=== PATIENT | female | born 1960 | race Two or more races ===

== ENCOUNTER 2019-03-03 16:11 | Emergency (ER) | payer SELFPAY ==
[~2019-03-03] VITALS: Ht 162.6 cm; Wt 97.5 kg
[2019-03-03] MEDS ORDERED: IPRATRPIUM/ALBUTEROL 0.5/2.5MG 3 ML NEBU. ONE (16:50)
--- NOTE | 2019-03-03 16:51 | PHYS DOC ---
Past History Past Medical History: COPD (HERBERTH OROZCO DO) Smoking: Cigarettes Alcohol Use: Occasionally Drug Use: Marijuana, Methamphetamine (HERBERTH OROZCO DO) Adult General HPI HPI Patient is a 59-year-old female presents complaining of chest pain for the past week. Also shortness of breath. She reports being held of her rescue inhaler. She does have home nebulizer treatments. Nothing seems to make the discomfort better or worse. Patient feels like "my A. fib is acting up." Patient denies any respirophasic component to the chest pain. She admits to using methamphetamine yesterday as well as marijuana. There is no radiation of the discomfort. She was seen at [facility] several days ago for similar symptoms and sent home on antibiotics. She is also seeking help with rehabilitation for her methamphetamine abuse.[] (HERBERTH OROZCO DO) Review of Systems Review of Systems Constitutional: Denies fever or chills [] Eyes: Denies change in visual acuity, redness, or eye pain [] HENT: Denies nasal congestion or sore throat [] Respiratory: Denies cough or shortness of breath [] Cardiovascular: No additional information not addressed in HPI [] GI: Denies abdominal pain, nausea, vomiting, bloody stools or diarrhea [] : Denies dysuria or hematuria [] Musculoskeletal: Denies back pain or joint pain [] Integument: Denies rash or skin lesions [] Neurologic: Denies headache, focal weakness or sensory changes [] Endocrine: Denies polyuria or polydipsia [] All other systems were reviewed and found to be within normal limits, except as documented in this note. (HERBERTH OROZCO DO) Current Medications Current Medications Current Medications Medications (Trade) Dose Ordered Sig/Sweta Start Time Stop Time Status Last Admin Dose Admin Albuterol/ Ipratropium (Duoneb) 3 ml 1X ONCE 03/03/19 16:45 03/03/19 16:46 UNV Aspirin (Children'S Aspirin) 324 mg 1X ONCE 03/03/19 16:45 03/03/19 16:46 UNV (HERBERTH OROZCO DO) Physical Exam Physical Exam Constitutional: Well developed, well nourished, no acute distress, non-toxic appearance. [] HENT: Normocephalic, atraumatic, bilateral external ears normal, oropharynx moist, no oral exudates, nose normal. [] Eyes: PERRLA, EOMI, conjunctiva normal, no discharge. [] Neck: Normal range of motion, no tenderness, supple, no stridor. [] Cardiovascular:Heart rate regular rhythm, no murmur [] Lungs & Thorax: Bilateral breath sounds clear to auscultation [] Abdomen: Bowel sounds normal, soft, no tenderness, no masses, no pulsatile masses. [] Skin: Warm, dry, no erythema, no rash. [] Back: No tenderness, no CVA tenderness. [] Extremities: No tenderness, no cyanosis, no clubbing, ROM intact, no edema. [] Neurologic: Alert and oriented X 3, normal motor function, normal sensory function, no focal deficits noted. [] Psychologic: Affect anxious, judgement normal, mood normal. [] (HERBERTH OROZCO DO) EKG EKG EKG shows an irregular rhythm, normal axis, rate of 86 bpm, QTC of 441 ms, no ST elevations. Interpreted by me at 1628.[] (HERBERTH OROZCO DO) Radiology/Procedures Radiology/Procedures PROCEDURE: PORTABLE CHEST 1V PORTABLE CHEST 1V Clinical indications: Shortness of breath. Chest pain. COMPARISON: None available. Findings: Mild bilateral interstitial thickening is seen bilaterally. No lung consolidation or pleural effusion or lung mass or pneumothorax is seen. The heart size, pulmonary vasculature, mediastinum and both sandro are unremarkable. 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 Impression: Bilateral interstitial lung infiltrates versus bronchitis. No consolidative pneumonia.[] (HERBERTH OROZCO DO) Course & Med Decision Making Course & Med Decision Making Pertinent Labs and Imaging studies reviewed. (See chart for details) ED course: Patient arrived, was placed in bed, and tolerated exam well. Patient care endorsed to the nighttime physician at 1800 with laboratory testing in progress.[] (HERBERTH OROZCO DO) Course & Med Decision Making Arrangement with [facility] for an in pt. Treatment facility- however refused inpatient program. Impression: 1. History of polysubstance use 2. Possible polysubstance use withdrawal 3. Anxiety disorder 4. Bipolar disorder 5. Elevated glucose-249= resolved with hydration 6. Marijuana and Tobacco use Pt. ecourage to follow up with Counseling center and primary care. Pt. to see primary or counseling center for renewal of narcotic and anxiety meds. (KEREN KOVACS MD) Dragon Disclaimer Dragon Disclaimer This electronic medical record was generated, in whole or in part, using a voice recognition dictation system. (HERBERTH OROZCO DO) Departure Departure: Disposition: 01 HOME/RESIDENCE PRIOR TO ADM Condition: STABLE Dragon Disclaimer This chart was dictated in whole or in part using Voice Recognition software in a busy, high-work load, and often noisy Emergency Department environment. It may contain unintended and wholly unrecognized errors or omissions. (KEREN KOVACS MD) HERBERTH OROZCO DO Mar 03, 2019 16:51 KEREN KOVACS MD Mar 04, 2019 03:46
[2019-03-03 17:01] LABS: BASO # 0.1 x10^3/uL (0.0-0.2); BASO % 1 % (0-3); EOS % 0 % (0-3); HEMATOCRIT 42.9 % (36.0-47.0); HEMOGLOBIN 14.2 g/dL (12.0-15.5); LYMPH # 2.5 x10^3/uL (1.0-4.8); LYMPH % 24 % (24-48); MEAN CORPUSCULAR HEMOGLOBIN 30 pg (25-35); MEAN CORPUSCULAR HGB CONC 33 g/dL (31-37); MEAN CORPUSCULAR VOLUME 90 fL (79-100); MONO # 0.7 x10^3/uL (0.0-1.1); MONO % 6 % (0-9); NEUT # 7.2 x10^3uL (1.8-7.7); NEUT % 69 % (31-73); PLATELET COUNT 242 x10^3/uL (140-400); RED BLOOD COUNT 4.79 x10^6/uL (3.50-5.40); WHITE BLOOD COUNT 10.5 x10^3/uL (4.0-11.0)
--- NOTE | 2019-03-03 17:06 | RAD ---
PORTABLE CHEST 1V Clinical indications: Shortness of breath. Chest pain. COMPARISON: None available. Findings: Mild bilateral interstitial thickening is seen bilaterally. No lung consolidation or pleural effusion or lung mass or pneumothorax is seen. The heart size, pulmonary vasculature, mediastinum and both sandro are unremarkable. 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 Impression: Bilateral interstitial lung infiltrates versus bronchitis. No consolidative pneumonia. Electronically signed by: Carlos Jung MD (03/03/2019 5:03 PM) [place] [id number]
[2019-03-03 17:09] LABS: PREG TEST PT QUAL NEGATIVE (NEG)
[2019-03-03] MEDS ORDERED: ASPIRIN 81 MG TAB.CHEW PO ONE (17:10)
[2019-03-03] MEDS ORDERED: IPRATRPIUM/ALBUTEROL 0.5/2.5MG 3 ML NEBU. NEB ONE (17:10)
[2019-03-03 17:19] LABS: ALBUMIN 3.7 g/dL (3.4-5.0); CALCIUM 8.9 mg/dL (8.5-10.1); GFR 56.9; MAGNESIUM 1.8 mg/dL (1.8-2.4); POTASSIUM 4.2 mmol/L (3.5-5.1); TOTAL BILIRUBIN 0.3 mg/dL (0.2-1.0); TOTAL PROTEIN 7.4 g/dL (6.4-8.2)
--- NOTE | 2019-03-03 18:03 | EKG ---
[address] [address] Test Date: 2019-03-03 Test Time: 16:25:55 Pat Name: CRISTA SEXTON Department: Room: Gender: F Want Ad Clerk: : 1960 Requested By: HERBERTH OROZCO Order Number: [id number] Reading MD: Measurements Intervals [place] Rate: 86 P: [place]: QRS: 53 QRSD: 74 T: 48 QT: 366 QTc: 441 Interpretive Statements IRREGULAR RHYTHM, NO P-WAVE FOUND LOW LIMB LEAD VOLTAGE NO SPECIFIC ECG ABNORMALITIES RI6.01 No previous ECG available for comparison
[2019-03-03] MEDS ORDERED: IV RINGERS SOLUTION,LACTATED 1,000 ML IV ONE ×2 (19:15→21:30)
[2019-03-03 19:56] LABS: BARBITURATES NEG (NEG); BENZODIAZEPINES NEG (NEG); CANNABINOIDS POS (NEG); COCAINE NEG (NEG); METHADONE NEG (NEG); OPIATES NEG (NEG); PHENCYCLIDINE NEG (NEG)
[2019-03-03] MEDS ORDERED: ALBUTEROL SULFATE 8GM INHALER. INH ONE (20:00)
[2019-03-03 20:03] LABS: AMPHETAMINE/METHAMPHETAMINE NEG (NEG)
[2019-03-03 22:15] LABS: BACTERIA,URINE FEW /HPF (0-FEW); BILIRUBIN,URINE NEG (NEG); CLARITY,URINE CLEAR; COLOR,URINE YELLOW; GLUCOSE,URINE >=1000 mg/dL (NEG); HYALINE CASTS, URINE OCC /HPF; NITRITE,URINE NEG (NEG); SQUAMOUS EPITHELIAL CELL,UR OCC /LPF; UROBILINOGEN,URINE 0.2 mg/dL (0.2 mg/dL)
[2019-03-03 22:21] VITALS: BP 120/81
== END 2019-03-03 22:45 | disposition home or self-care (01) ==
LOC: ER 18:13
DX: F41.9 Anxiety disorder, unspecified (principal); F31.9 Bipolar disorder, unspecified; R73.02 Impaired glucose tolerance (oral); J44.9 Chronic obstructive pulmonary disease, unspecified; F12.10 Cannabis abuse, uncomplicated; F15.10 Other stimulant abuse, uncomplicated; F17.210 Nicotine dependence, cigarettes, uncomplicated
CPT/HCPCS: 36415; 71045; 80053; 80307; 81001; 81025; 82947; 83690; 83735; 83880; 84484; 84703; 85025; 85379; 85610; 85730; 93005; 94640; 99285; J7120; J7613; J7620